=== PATIENT | male | born 1975 ===

== ENCOUNTER 2017-11-21 13:57 | Outpatient (CLI) | payer OTHER | END 2017-11-21 13:58 | disposition home or self-care (01) | LOC: SC 13:57 | PROVIDERS: ATTEND Internal Medicine Pulmonary Disease | DX: G47.33 Obstructive sleep apnea (adult) (pediatric) (principal); E66.01 Morbid (severe) obesity due to excess calories; Z68.41 Body mass index [BMI] 40.0-44.9, adult | CPT/HCPCS: 99203; 99212 ==

== ENCOUNTER 2018-03-20 11:21 | Outpatient (CLI) | payer OTHER | END 2018-03-20 11:22 | disposition home or self-care (01) | LOC: SC 11:21 | PROVIDERS: ATTEND Internal Medicine Pulmonary Disease | DX: G47.33 Obstructive sleep apnea (adult) (pediatric) (principal) | CPT/HCPCS: 99212; 99213 ==

== ENCOUNTER 2022-06-21 15:00 | Outpatient (CLI) | payer OTHER ==
[2022-06-21 16:37] VITALS: BP 126/70
--- NOTE | 2022-06-21 16:37 | SLEEP CARE CONSULTATION ---
Information from patient questionnaire entered by Joe Baker. I have reviewed and concur with the information entered by Joe Baker. This document represents the service I personally performed and the decisions made by me, Sirena Mccullough MD, [facility]. History of Present Illness Service Date and Time: 06/21/2022 1500 Reason for Visit: New patient Chief Complaint: reports: Unrefreshed sleep, Snoring, Excessive daytime sleepiness, Fatigue, Frequent awakenings at night Date of Onset: 2+YRS Usual bedtime: 10PM Time it takes to fall asleep: MINS Snores at night: Yes Observed to quit breathing while asleep: Yes Sleeps alone due to snoring: No Number of times waking at night: 2-3 Reasons for waking at night: reports: Snoring, Pain, Other (UNKNOWN) Toss, Turn, or Twitch while sleeping: Yes Recalls having dreams: Yes Usually gets out of bed at: 6AM Feels refreshed in the morning: No Morning headache: Yes Sleepy or fatigued during the day: Yes Ever fallen asleep while driving: No Takes day naps: No Dreams during day naps: Yes Prior sleep studies: Yes Additional HPI information: Mr. Boggs was diagnosed to have moderate obstructive sleep apnea-hypopnea syndrome and returns today for follow up of CPAP therapy after last seen 4 years ago. He said he moved to [place] and just came back. The patient purchased the ResMed AirSense 10 from [facility] and was fitted with a ResMed AirTouch F-20 full face mask. He continues to use the device nightly and all through the night. The compliance report shows that he uses the device 364 nights out of the past 365 nights, averaging 7.8 hours a night. He complains of the new Respironics DreamStation being too loud but no particular problem with the device such as soreness on the face, dry nose, epistaxis, nasal congestion or headache. He thinks that the pressure of 5 - 9 cmH2O is comfortable. On the CPAP therapy he notices improvement in his sleep quality, and that he wakes up feeling fresher in the morning and more awake/alert during the day. [place] Sleepiness Scale score is 13. His complains that he snores loudly through the CPAPl. The average residual AHI is 0.9; and large leak, 18 L/minute. - Parasomnia Symptoms Ever been unable to move upon waking from sleep: No Walks in sleep: No Talks in sleep: No Ever acted out dreams in sleep: No Ever felt weak in the knees when startled or emotional: Yes Bothered by creepy, crawly, restless sensations in legs: Yes Problems with memory or concentration: Yes Subjective Initial [place] Sleepiness Scale score: 13 (05/10/22) Past Medical History Past Medical History: reports: Hypertension Social History The patient's occupation is a AM. Patient is and lives in [place]. Have you smoked in the past 12 months: No Alcohol use: Yes Alcohol amount and frequency: 1-2 DRNKS 1-2 MONTH Caffeine use: Yes Caffeine amount and frequency: 4-5 DAILY Family History Family history of sleep disordered breathing: Yes Family Hx Sleep Apnea: Mother: Snoring, Sleep apnea - Treated, Father: Snoring, Sleep apnea - Untreated Allergies and Home Medications Known drug allergies: No Drug allergies reviewed: Yes Home medication list reviewed: Yes Review of Systems Cardiovascular: reports: high blood pressure, leg or foot swelling Respiratory: denies: shortness of breath, wheeze, sputum production, chronic cough, other Gastrointestinal: reports: heartburn Urinary: reports: frequency, urgency Neurological: reports: headaches Psychiatric: denies: Attention Deficit Hyperactivity, anxiety, depression, mood disorder, claustrophobia, other Ear/Nose/Throat: denies: nasal congestion, sinus problems, nose bleeds, dry mouth/throat, hoarseness, injury to nose, tonsillectomy, wisdom teeth removed, other Endocrine: reports: sluggishness, increased urination Musculoskeletal: reports: neck pain, back pain Immunologic: denies: sneezing, rash, itching, allergies to food or environment, other Physical Exam Vital signs obtained and entered by: JOE Echavarria MA Blood Pressure: 126/70 (LEFT ARM) Cuff size: long Heart Rate: 76 O2 Saturation: 96 Height: 6 ft Weight: 333 lb 3.2 oz Body Mass Index: 45.1 BMI Classification: Morbidly Obese Neck circumference: 20 HEENT: No craniofacial malformation Nostrils: patent to airflow Turbinates: normal Septum: midline Mouth and throat: narrow oropharynx Soft palate: long Hard palate: normal Uvula: normal Uvula visualization: 50% Mallampati Class II Tongue: normal in size Impression and Plan IMPRESSION: 1. Obstructive Sleep Apnea-Hypopnea Syndrome, moderate, with the patient continuing to do well on nasal CPAP therapy. He has excellent compliance and significant clinical benefits. The current pressure appears effective and comfortable. However, he snores loudly through the CPAP. I think this is from excessive air leak. Because he has thick call, I recommend trying a nasal mask. PLAN: 1. Continue with the same pressure setting. 2. A [employer]s DreamWear [id number] fit-pack given to the patient to try. 3. Return in one year for follow up or earlier if there is any problem. He will be eligible for a new machine then. Mask provided: Yes Counseling Topics: Weight control Follow up with Sleep Care in: 1 year Visit Type: In Office Time Spent with Patient (minutes): 15 Provider Statement: I spent 100% of the Face to Face Visit with the patient with greater than 50% spent counseling the patient and coordination of care.
== END 2022-06-21 15:01 | disposition home or self-care (01) ==
LOC: SC 15:00
PROVIDERS: ATTEND Internal Medicine Pulmonary Disease
DX: G47.33 Obstructive sleep apnea (adult) (pediatric) (principal); E66.01 Morbid (severe) obesity due to excess calories; Z68.42 Body mass index [BMI] 45.0-49.9, adult
CPT/HCPCS: 99202; 99212

== ENCOUNTER 2023-07-21 13:49 | Outpatient (CLI) | payer OTHER ==
--- NOTE | 2023-07-21 14:22 | Sleep Patient Instructions ---
Sleep Center Visit Summary - Patient Visit Information Reason for Visit: Annual follow-up - Patient Instructions Additional Instructions: You will continue with CPAP therapy with pressure set at 5-9 cmH2O. A supply prescription will be updated with your DME. I have added an order to update your PAP machine. Please call the office to schedule a compliance follow up once you get your new device. We encourage you to continue to try to lose weight. Please follow up with the sleep care office one month after obtaining new device. - Clinic Information Contact: Merged with [facility] [address] [place] [address] [email or web address] T: [phone]
--- NOTE | 2023-07-21 14:27 | SLEEP CARE CONSULTATION ---
Information from patient questionnaire entered by Joe Baker. I have reviewed and concur with the information entered by Joe Baker. This document represents the service I personally performed and the decisions made by me, Leidy Guillermo ARNP. History of Present Illness Service Date and Time: 07/21/2023 1349 Previous diagnosis: Moderate, Obstructive Sleep Apnea-Hypopnea Syndrome AHI: 16.8 (2010) Reason for follow up: annual (LAST SEEN 04/2022) Equipment type: CPAP (RESMED Airsense 10, NEED MACHINE) Equipment obtained from: [employer] (getting supplies) Mask style: Full face Mask brand: Resmed (AirTouch F20) Backup mask available: Yes Last cushion change: 2 months Prior sleep studies: Yes HPI additional information: CAMRYN SALVADOR was diagnosed to have moderate, AHI 16.8, obstructive sleep apnea-hypopnea syndrome and returned today for CPAP therapy annual follow-up. Sleep Study - Results Prior sleep studies: Yes CPAP Compliance Data - Data Reviewed with Patient Average duration of nightly device use: 7 hours 34 minutes Compliance rate %: 99 (364/365 days used) Current pressure setting (cmH2O): 5-9 Average residual AHI: 0.7 Central apnea: 0 Obstructive apnea: 0.3 Hypopnea: 0.4 Average large leak: 2.5 L/min Subjective Missed days of use due to: reports: travel Patient concerns: reports: mask leak noise, dry mouth, nose, throat. denies: aerophagia, mask discomfort, air blowing in eyes, condensation in mask/hose, nasal congestion, epistaxis Observed to snore while using device: Yes Current pressure setting perceived as: comfortable On therapy, patient: reports: sleeping better, awakening more refreshed, being more awake and alert during the day, more rested overall. denies: drowsiness while driving Initial [place] Sleepiness Scale score: 13 (05/10/22) Current [place] Sleepiness Scale score: 12 (07/21/23) Allergies and Home Medications Known drug allergies: No Drug allergies reviewed: Yes Home medication list reviewed: Yes (allopurinol, metformin, sertraline) Review of Systems Review of systems same as previous: No (PREDIABETIC) Physical Exam Vital signs obtained and entered by: JOE Echavarria MA Blood Pressure: 128/79 (LEFT ARM) Cuff size: long Heart Rate: 77 O2 Saturation: 98 Height: 6 ft Weight: 318 lb 3.2 oz Weight change since last visit: 15 lb loss Body Mass Index: 43.1 BMI Classification: Morbidly Obese Impression and Plan 1. Obstructive Sleep Apnea-Hypopnea Syndrome, moderate, with good treatment compliance and good apnea control. On CPAP therapy, the patient has better sleep quality and is more rested overall. He says he has had his current CPAP for 5-6 years. Thus, the CPAP will be updated. The new CPAPs also have a better humidity system which could assist control of patients dryness symptoms. A DWO prescription will be made. Compliance guidelines for new device and follow up discussed. Patient's apnea severity and rationale for treatment to reduce apnea, improve sleep quality and reduce cardiovascular and cerebrovascular events was reviewed. I also reviewed the benefit of consistent device use of CPAP for hypertension. 2. Obesity, unspecified. Currently patients BMI is 43.1. Obesity increases the risk of apnea, CPAP pressure requirements and overall health risks especially cardiovascular and diabetes. Thus patient is advised to lose weight. * Continue auto CPAP pressure at 5-9 cmH2O * Update machine * Update supply prescription * Notify me if snoring with mask or feeling that the pressure is too much or too little * Attempt to lose weight * Call this office if any problems using CPAP * Return for follow up one month after obtaining new device, or sooner if concerns arise Counseling Topics: Spare mask, Weight loss health impact Prescriptions: Auto CPAP, Device supplies Follow up with Sleep Care in: 1 year Visit Type: In Office Time Spent with Patient (minutes): 23 Provider Statement: I spent 100% of the Face to Face Visit with the patient with greater than 50% spent counseling the patient and coordination of care.
[2023-07-21 14:30] VITALS: BP 128/79; O2SAT 98
== END 2023-07-21 13:50 | disposition home or self-care (01) ==
LOC: SC 13:49
PROVIDERS: ATTEND Nurse Practitioner Family
DX: G47.33 Obstructive sleep apnea (adult) (pediatric) (principal); E66.01 Morbid (severe) obesity due to excess calories; Z68.41 Body mass index [BMI] 40.0-44.9, adult
CPT/HCPCS: 99212; 99213

== ENCOUNTER 2023-09-21 09:14 | Day surgery (SDC) | payer OTHER ==
[2023-09-21] MEDS: LACTATED RINGERS 1,000 ML IV ONE ×2 (09:19→11:10)
--- NOTE | 2023-09-21 10:17 | ANESTHESIA ---
Pre-Anesthesia VS, & Labs - Diagnosis positive cologuard - Procedure colonoscopy Height: 6 ft Weight (kg): 140.3 kg Body Mass Index: 41.9 BMI Classification: Morbidly Obese - NPO Other (prep last at 5am) - Lab Results Current Lab Results: Laboratory Tests 09/21/23 09:50: POC Whole Bld Glucose 103 H Home Medications and Allergies Home Medications: Ambulatory Orders Pravastatin [Pravachol] See Rx Instructions .ROUTE .COMPLEX 09/21/23 Tamsulosin [Flomax] See Rx Instructions .ROUTE .COMPLEX 09/21/23 amLODIPine [Norvasc] See Rx Instructions .ROUTE .COMPLEX 09/21/23 Sertraline [Zoloft] See Rx Instructions .ROUTE .COMPLEX 07/21/23 allopurinoL [Allopurinol] See Rx Instructions .ROUTE .COMPLEX 07/21/23 metFORMIN [Glucophage] See Rx Instructions .ROUTE .COMPLEX 07/21/23 Pravastatin [Pravachol] See Rx Instructions .ROUTE .COMPLEX 09/21/23 Tamsulosin [Flomax] See Rx Instructions .ROUTE .COMPLEX 09/21/23 amLODIPine [Norvasc] See Rx Instructions .ROUTE .COMPLEX 09/21/23 Allergies/Adverse Reactions: Allergies Allergy/AdvReac Type Severity Reaction Status Date / Time No Known Drug Allergies Allergy Verified 07/21/23 14:05 Anes History & Medical History - Anesthetic History Anesthesia Complications: reports: No previous complications - Medical History Cardiovascular: reports: Hypertension, High cholesterol Pulmonary: reports: Sleep apnea, CPAP use Gastrointestinal: reports: GERD, Chronic constipation Urinary: reports: Benign prostate hypertrophy Musculoskeletal: reports: Gout Endocrine/Autoimmune: reports: None Skin: reports: Other Smoking Status: Never smoker - Surgical History Urologic: reports: Ureterolithotomy (stones) Orthopedic: reports: Other (wrist surgery) Exam General: Alert, Oriented x3 Dental: WNL Mouth Opening: Greater than 4 Fingerbreadths Neck Mobility: Normal Mallampati classification: II Thyromental Distance: greater than 6 cm Respiratory: Lungs clear Cardiovascular: Regular rate Plan Anesthesia Type: Total IV Consent for Procedure(s) Verified and Reviewed: Yes Code Status: Attempt Resuscitation ASA classification: 2-Mild systemic disease Is this case an emergency?: No
[2023-09-21] MEDS ORDERED: PROPOFOL 500 MG/50 ML 500 MG/50 ML VIAL ONE (10:31)
[2023-09-21] MEDS ORDERED: LIDOCAINE-MPF 2% 5 ML VIAL ONE (10:31)
[2023-09-21] MEDS ORDERED: PROPOFOL 200 MG/20 ML VIAL IVP ONE (10:31)
[2023-09-21] MEDS ORDERED: MIDAZOLAM 2 MG/2 ML VIAL ONE (10:31)
[2023-09-21] MEDS: SIMETHICONE 40 MG/0.6 ML 30 ML BOTTLE PO ONE (10:56)
[2023-09-21] MEDS ORDERED: SIMETHICONE 40 MG/0.6 ML 30 ML BOTTLE ONE (11:00)
--- NOTE | 2023-09-21 11:29 | ANESTHESIA POST OP EVALUATION ---
Anesthesia Post Eval - Post Anesthesia Eval Vitals: Last Vital Signs Temp 36.2 C L 09/21/23 11:15 Pulse 66 09/21/23 11:15 Resp 17 09/21/23 11:15 BP 104/57 L 09/21/23 11:15 Pulse Ox 95 09/21/23 11:15 O2 Flow Rate CV Function Including HR & BP: Stable Pain Control: Satisfactory Nausea & Vomiting: Negative Mental Status: Baseline Respiratory Status: Airway Patent Hydration Status: Satisfactory Anesthesia Complications: None
[2023-09-21 11:44] VITALS: BP 136/72; O2SAT 96
== END 2023-09-21 09:15 | disposition home or self-care (01) ==
LOC: SDS 09:14
PROVIDERS: ATTEND Surgery
PROC: 0DBL8ZZ Excision of Transverse Colon, Via Natural or Artificial Opening Endoscopic (ICD-10-PCS; 2023-09-21)
PROC: 0DBN8ZZ Excision of Sigmoid Colon, Via Natural or Artificial Opening Endoscopic (ICD-10-PCS; principal; 2023-09-21 11:45)
DX: R19.5 Other fecal abnormalities (principal); D12.3 Benign neoplasm of transverse colon; D12.5 Benign neoplasm of sigmoid colon; E11.9 Type 2 diabetes mellitus without complications; E66.01 Morbid (severe) obesity due to excess calories; Z80.0 Family history of malignant neoplasm of digestive organs; Z68.41 Body mass index [BMI] 40.0-44.9, adult; G47.30 Sleep apnea, unspecified; Z79.84 Long term (current) use of oral hypoglycemic drugs
CPT/HCPCS: 45380; 45385; A9270; J7120

== ENCOUNTER 2023-11-03 15:37 | Outpatient (CLI) | payer OTHER ==
--- NOTE | 2023-11-03 16:05 | Sleep Patient Instructions ---
Sleep Center Visit Summary - Patient Visit Information Reason for Visit: First compliance with new device - Patient Instructions Additional Instructions: You were here for follow up of CPAP therapy. You will be continued on CPAP therapy with pressure at 5-9 cmH2O. I have written an order for a mask refitting for full face mask, Jeremy Full. You should follow up with sleep care in 12 months. You may contact us sooner for any questions or concerns. - Clinic Information Contact: [facility] [address] [place] [address] [email or web address] T: [phone]
--- NOTE | 2023-11-03 16:08 | SLEEP CARE CONSULTATION ---
Information from patient questionnaire entered by Parviz Patel. I have reviewed and concur with the information entered by Parviz Patel. This document represents the service I personally performed and the decisions made by , Leidy Guillermo ARNP. History of Present Illness Service Date and Time: 11/03/2023 1537 Previous diagnosis: Moderate, Obstructive Sleep Apnea-Hypopnea Syndrome AHI: 16.8 (2010) Reason for follow up: first compliance (Set up 08/28), first compliance after device update Equipment type: CPAP (RESMED Airsense 11, s/u 08/30/23) Equipment obtained from: [employer] (getting supplies) Mask style: Full face (F20) Mask brand: Resmed Backup mask available: Yes Last cushion change: 3-4 weeks Prior sleep studies: Yes Year and Where: [address] [place] [address] Sleep Lab Type of Sleep Study: Polysomnography HPI additional information: CAMRYN SALVADOR was diagnosed to have moderate, AHI 16.8, obstructive sleep apnea-hypopnea syndrome and returned today for CPAP therapy first compliance after updating device follow-up. Sleep Study - Results Prior sleep studies: Yes CPAP Compliance Data - Data Reviewed with Patient Average duration of nightly device use: 7 h 59 mins Compliance rate %: 100 (30/30 days used) Current pressure setting (cmH2O): 5 - 9 Average residual AHI: 1.0 Central apnea: 0 Obstructive apnea: 0.3 Hypopnea: 0.6 Average large leak: 0.1 L/min Subjective Missed days of use due to: reports: travel Patient concerns: reports: condensation in mask/hose. denies: aerophagia, mask discomfort, air blowing in eyes, mask leak noise, nasal congestion, dry mouth, nose, throat, epistaxis Observed to snore while using device: Yes Current pressure setting perceived as: comfortable On therapy, patient: reports: other (he is waking up several times a night due to shoulder discomfort). denies: drowsiness while driving Initial [place] Sleepiness Scale score: 13 (05/10/2022) Current [place] Sleepiness Scale score: 14 (11/03/2023) Allergies and Home Medications Known drug allergies: No Drug allergies reviewed: Yes Home medication list reviewed: Yes (no changes) Allergy and home medication list: Allergies No Known Drug Allergies Allergy Review of Systems Review of systems same as previous: Yes (no changes) Physical Exam Vital signs obtained and entered by: Leidy Yates NP Blood Pressure: 131/90 Cuff size: long (right arm) Heart Rate: 75 O2 Saturation: 97 Height: 6 ft Weight: 316 lb Body Mass Index: 42.8 BMI Classification: Morbidly Obese Impression and Plan 1. Obstructive Sleep Apnea-Hypopnea Syndrome, moderate, with good treatment compliance and good apnea control. On CPAP therapy, the patient has better sleep quality and is more rested overall. Patient has significant proved sleep apnea and is comfortable with CPAP therapy. He continues to snore but his average AHI is at 1. I do not think we need of adjustment of his pressure today and he would not like his pressure to be elevated. Patient denies problems with oral dryness, nasal congestion, epistaxis, skin irritation or aerophagia. Patient's apnea severity and rationale for treatment to reduce apnea, improve sleep quality and reduce cardiovascular and cerebrovascular events was reviewed. I also reviewed the benefit of consistent device use of CPAP for hypertension. 2. Obesity, unspecified. Currently patients BMI is 42.8. Obesity increases the risk of apnea, CPAP pressure requirements and overall health risks especially cardiovascular and diabetes. Thus patient is advised to lose weight. * Continue auto CPAP pressure at 5-9 cmH2O * Notify me if snoring with mask or feeling that the pressure is too much or too little * Attempt to lose weight * Call this office if any problems using CPAP * Return for follow up in 12 months, or sooner if concerns arise Counseling Topics: Spare mask, Weight loss health impact Follow up with Sleep Care in: 1 year Visit Type: In Office Time Spent with Patient (minutes): 20 Provider Statement: I spent 100% of the Face to Face Visit with the patient with greater than 50% spent counseling the patient and coordination of care.
[2023-11-03 16:18] VITALS: BP 131/90; O2SAT 97
== END 2023-11-03 15:38 | disposition home or self-care (01) ==
LOC: SC 15:37
PROVIDERS: ATTEND Nurse Practitioner Family
DX: G47.33 Obstructive sleep apnea (adult) (pediatric) (principal); E66.01 Morbid (severe) obesity due to excess calories; Z68.41 Body mass index [BMI] 40.0-44.9, adult
CPT/HCPCS: 99212; 99213